=== PATIENT | male | born 1965 | race African-American/Black ===

== ENCOUNTER 2018-03-02 09:32 | Outpatient (CLI) | payer OTHER ==
--- NOTE | 2018-03-02 10:59 | RAD ---
RIGHT ELBOW 4 VIEWS: Date: 03/02/18 HISTORY: Right elbow pain. FINDINGS/IMPRESSION: No fracture, dislocation, or bony destruction is identified. A tiny radiopaque metallic density is se en in the elbow. POS: H
[2018-03-04 16:50] LABS: ANA Symphony (Qualitative) Negative (Negative); ANA Symphony (Quantitative) 0.1 Ratio (< 0.7 Negative); EliA RAS New Method **** NEW METHOD ****; Rheumatoid Factor IgA Antibody 2.5 IU/mL (<14 Negative); Rheumatoid Factor IgM Antibody 0.9 IU/mL (<3.5 Negative); dsDNA IgG Antibody 8.4 IU/mL (<10 Negative)
== END 2018-03-02 09:33 | disposition home or self-care (01) ==
LOC: SCSRAD 09:32
PROVIDERS: ATTEND Nurse Practitioner Family
DX: M25.521 Pain in right elbow (principal); S50.351A Superficial foreign body of right elbow, initial encounter
CPT/HCPCS: 36415; 83520; 85652; 86038; 86200; 86225

== ENCOUNTER 2020-09-27 15:04 | Emergency (ER) | payer OTHER ==
[2020-09-27] MEDS ORDERED: Albuterol 200 PUFF (6.7GM INHALER) ONE (16:03)
[2020-09-27 16:23] LABS: #Basophils 0.1 thou/uL (0.0-0.2); #Lymphocytes 2.4 thou/uL (1.20-3.40); #Monocytes 0.7 thou/uL (0.11-0.59); %Basophils 0.5 % (0.0-1.0); %Eosinophils 0.3 % (0.0-10.0); %Neutrophils 77.2 % (42.0-75.0); Hemoglobin 15.4 g/dL (14.0-18.0); Mean Corpuscular HGB CONC 31.3 g/dL (32.0-36.0); Mean Corpuscular Hemoglobin 29.2 pg (27.0-31.0); Mean Corpuscular Volume 93.4 fL (78.0-98.0); Mean Platelet Volume 8.3 fL (7.4-10.4); Platelet Count 210 thou/uL (130-400); RBC Distribution Width 12.7 % (11.5-14.5); Red Blood Cell (RBC) Count 5.26 mill/uL (4.70-6.10); White Blood Cell (WBC) Count 14.2 thou/uL (4.8-10.8)
[2020-09-27 16:44] LABS: ALT (SGPT) 20 U/L (8-55); AST (SGOT) 23 U/L (5-34); Albumin 4.4 g/dL (3.5-5.0); Alkaline Phosphatase 69 U/L (40-110); Anion Gap 14 mmol/L (10-20); BUN (Urea Nitrogen) 10 mg/dL (8.4-25.7); Bilirubin, Total 0.6 mg/dL (0.2-1.2); Calc. Creatinine Clearance 0 mL/min (70-130); Calcium 9.4 mg/dL (7.8-10.44); Carbon Dioxide 27 mmol/L (22-29); Chloride 104 mmol/L (98-107); Globulin 2.7 g/dL (2.4-3.5); Glucose 92 mg/dL (70-105); Protein, Total 7.1 g/dL (6.0-8.3); Sodium 141 mmol/L (136-145)
[2020-09-27] MEDS ORDERED: Dexamethasone 10 MG/ML VIAL ONE (16:53)
[2020-09-27] MEDS ORDERED: Magnesium 2 GM/50 ML BAG (IN WATER) ONE (18:37)
[2020-09-27] MEDS ORDERED: Ondansetron PF 4 MG/2 ML Vial ONE (18:37)
== END 2020-09-27 18:51 | disposition home or self-care (01) ==
LOC: ERS 15:04
DX: J45.901 Unspecified asthma with (acute) exacerbation (principal); K21.9 Gastro-esophageal reflux disease without esophagitis; E78.5 Hyperlipidemia, unspecified; I10 Essential (primary) hypertension; F17.210 Nicotine dependence, cigarettes, uncomplicated; Z79.899 Other long term (current) drug therapy
CPT/HCPCS: 36415; 71045; 80053; 83880; 84484; 85025; 94640; J1100; J2405; J3475; J7620

== ENCOUNTER 2022-03-17 12:59 | Emergency (ER) | payer BC ==
[2022-03-17] MEDS ORDERED: Amoxicillin/Potassium Clav 875 MG TAB ONE (14:07)
== END 2022-03-17 14:14 | disposition home or self-care (01) ==
LOC: ERS 12:59
DX: J18.9 Pneumonia, unspecified organism (principal); K21.9 Gastro-esophageal reflux disease without esophagitis; E78.5 Hyperlipidemia, unspecified; I10 Essential (primary) hypertension; F17.210 Nicotine dependence, cigarettes, uncomplicated
CPT/HCPCS: 71045; 87804

== ENCOUNTER 2024-04-05 13:47 | Outpatient (CLI) | payer BC | END 2024-04-05 13:48 | disposition home or self-care (01) | LOC: CT 13:47 | PROVIDERS: ATTEND Nurse Practitioner Family | DX: I10 Essential (primary) hypertension (principal) | CPT/HCPCS: 71250 ==